=== PATIENT | female | born 1995 | race Caucasian/White ===

== ENCOUNTER 2021-11-12 02:17 | Emergency (ER) | payer OTHER ==
[~2021-11-12] VITALS: Ht 165.1 cm; Wt 59.0 kg
[2021-11-12] MEDS ORDERED: AMOX-430 PO (02:44)
[2021-11-12] MEDS ORDERED: AMOX/CLAVULANATE 875 MG TABLET ONE (02:44)
[2021-11-12] MEDS ORDERED: TDAP [DIPH/PERTUSSIS/TET] 0.5 ML VIAL IM ONE ×2 (02:44→03:00)
--- NOTE | 2021-11-12 02:49 | NUR ---
BIBS C/O DOG BITE TO MOUTH. LAC TO UPPER LIP. TDAP NOT UTD. PT AWAKE AND ALERT X4 BREATHING UNLABORED. BLEEDING CONTROLLED AND NO OTHER INJURIES NOTED.
[2021-11-12] MEDS ORDERED: AMOX/CLAVULANATE 875 MG TABLET PO ONE (03:00)
--- NOTE | 2021-11-12 04:19 | NUR ---
Patient discharged to home in stable condition. Written and verbal after care instructions given. Patient verbalizes understanding of instruction.
[2021-11-12 04:20] VITALS: BP 128/88
== END 2021-11-12 04:21 | disposition home or self-care (01) ==
LOC: ER 02:21
DX: S01.511A Laceration without foreign body of lip, initial encounter (principal); Z60.2 Problems related to living alone; W54.0XXA Bitten by dog, initial encounter; Y93.89 Activity, other specified; Y92.89 Other specified places as the place of occurrence of the external cause; Y99.8 Other external cause status
CPT/HCPCS: 99283; 12011; 90471; 90715; A6403 ×2